=== PATIENT | male | born 1965 | race Caucasian/White ===

== ENCOUNTER 2016-09-19 19:34 | Inpatient (IN) | payer MEDICAID ==
[~2016-09-19] VITALS: Ht 177.8 cm; Wt 70.3 kg
[2016-09-19 20:58] LABS: BASOPHIL % 0.8 % (0-2); PLATELET COUNT 202 x10^3mcL (130-400); RED CELL DISTRIBUTION WIDTH 13.9 % (11.5-14.5)
[2016-09-19 21:05] LABS: CALCIUM 8.3 mg/dL (8.5-10.1); CARBON DIOXIDE 21.9 mmol/L (21-32); CHLORIDE SERUM 108 mmol/L (98-107); GFR1 > 60 mL/min; GLUCOSE SERUM 124 mg/dL (74-106); POTASSIUM SERUM 3.3 mmol/L (3.5-5.1); SODIUM SERUM 143 mmol/L (136-145)
[2016-09-19 21:16] LABS: FREE T4 1.02 ng/dL (0.76-1.46); FREE THYROXINE INDEX 2.1 ug/dL (1.4-4.5); T4(THYROXINE) 5.7 ug/dL (4.7-13.3)
[2016-09-19 21:19] LABS: ALBUMIN 3.7 g/dL (3.4-5.0); ALKALINE PHOSPHATASE 73 U/L (46-116); ALT/SGPT 13 U/L (16-63); AST/SGOT 20 U/L (15-37); BILIRUBIN TOTAL 1.04 mg/dL (0.20-1.00); C REACTIVE PROTEIN 1.9 mg/dL (<=0.9)
[2016-09-19 21:35] LABS: CK-MB 1.7 ng/mL (0-3.6)
[2016-09-19 23:00] LABS: UA SPECIFIC GRAVITY 1.015 (1.005-1.035); urine erythrocyte NEGATIVE (NEGATIVE)
[2016-09-19 23:08] LABS: AMPHETAMINE QUAL UR POSITIVE (NEG <=1000); microscopic required? YES
[2016-09-19 23:11] LABS: ERYTHROCYTE SED RATE 9 mm/hr (0-15)
[2016-09-19 23:28] LABS: MAGNESIUM 1.8 mg/dL (1.8-2.4); PHOSPHOROUS 2.3 mg/dL (2.5-4.9)
[2016-09-19 23:33] LABS: CHOLESTEROL/HDL RATIO 2.1
[2016-09-19 23:46] VITALS: BP 105/58
[2016-09-20 05:43] VITALS: BP 87/51
[2016-09-20 05:46] LABS: BASOPHIL % 0.2 % (0-2); PLATELET COUNT 168 x10^3mcL (130-400); RED CELL DISTRIBUTION WIDTH 13.6 % (11.5-14.5)
[2016-09-20 06:05] LABS: CALCIUM 7.7 mg/dL (8.5-10.1); CARBON DIOXIDE 25.5 mmol/L (21-32); CHLORIDE SERUM 107 mmol/L (98-107); CREATININE SERUM 1.1 mg/dL (0.7-1.3); GFR1 > 60 mL/min; GLUCOSE SERUM 111 mg/dL (74-106); POTASSIUM SERUM 4.2 mmol/L (3.5-5.1); SODIUM SERUM 140 mmol/L (136-145)
[2016-09-20 06:31] VITALS: Ht 177.8 cm; Wt 70.3 kg
[2016-09-20 12:38] VITALS: BP 82/45
[2016-09-20 14:25] VITALS: BP 97/55
[2016-09-20 16:58] VITALS: BP 93/51
[2016-09-20 17:01] VITALS: BP 93/51
[2016-09-20 22:17] VITALS: BP 105/54
[2016-09-21 06:22] LABS: BASOPHIL % 0.2 % (0-2); PLATELET COUNT 169 x10^3mcL (130-400); RED CELL DISTRIBUTION WIDTH 13.6 % (11.5-14.5)
[2016-09-21 06:23] VITALS: BP 97/54
[2016-09-21 06:27] LABS: ALKALINE PHOSPHATASE 52 U/L (46-116); ALT/SGPT 19 U/L (16-63); AST/SGOT 15 U/L (15-37); CALCIUM 8.3 mg/dL (8.5-10.1); CARBON DIOXIDE 25.9 mmol/L (21-32); CHLORIDE SERUM 108 mmol/L (98-107); GFR1 > 60 mL/min; GLUCOSE SERUM 103 mg/dL (74-106); POTASSIUM SERUM 4.6 mmol/L (3.5-5.1); SODIUM SERUM 139 mmol/L (136-145)
[2016-09-21 06:29] LABS: ALBUMIN 2.6 g/dL (3.4-5.0); TOTAL PROTEIN, SERUM 5.5 g/dL (6.4-8.2)
[2016-09-21 08:08] VITALS: BP 105/55
[2016-09-21 10:57] VITALS: BP 98/50
[2016-09-21 14:21] VITALS: BP 98/49
[2016-09-21 20:43] VITALS: BP 101/55
[2016-09-22 05:19] VITALS: BP 106/61
[2016-09-22 05:58] LABS: BASOPHIL % 0.6 % (0-2); PLATELET COUNT 190 x10^3mcL (130-400); RED CELL DISTRIBUTION WIDTH 13.9 % (11.5-14.5)
[2016-09-22 09:51] VITALS: BP 100/57
[2016-09-22] MEDS ORDERED: APAP/HYDROCODON1 T13 PO (16:23)
== END 2016-09-22 16:54 | disposition home or self-care (01) | DRG 225 ==
LOC: EDBD 19:34 → ED 19:34 → DU 22:14 → MU 09-21 18:29
PROVIDERS: Specialist; Student in an Organized Health Care Education/Training Program; Surgery; ADMIT Family Medicine
PROC: 0DTJ4ZZ Resection of Appendix, Percutaneous Endoscopic Approach (ICD-10-PCS; principal; 2016-09-20 08:00)
DX: K35.80 Unspecified acute appendicitis (principal); N17.0 Acute kidney failure with tubular necrosis; R07.9 Chest pain, unspecified; E87.6 Hypokalemia; E83.39 Other disorders of phosphorus metabolism; E83.51 Hypocalcemia; F12.10 Cannabis abuse, uncomplicated; F15.10 Other stimulant abuse, uncomplicated; F17.210 Nicotine dependence, cigarettes, uncomplicated; Z68.22 Body mass index [BMI] 22.0-22.9, adult
CPT/HCPCS: 83880; 84439; C9113; J0330; J0694; J1170; J1644; J1885; J2250; J2270; J2405; J2543; J2704; J2710; J3010; J3490; J7030; J7120; Q0092